=== PATIENT | female | born 1955 | race Caucasian/White ===

== ENCOUNTER → 2022-09-06 | Outpatient (CLI) | payer MEDICARE ==
--- NOTE | 2022-09-06 20:13 | US ---
EXAMINATION TYPE: US mass soft tissue chest/back DATE OF EXAM: 09/06/2022 COMPARISON: NONE CLINICAL INDICATION: Female, 66 years old with history of R22.2 LOCALIZED SWELLING, MASS AND LUMP, TR UNK; Lump mid upper epigastric area and lower back right side. TECHNIQUE: Targeted scanning along the patient's two palpable sites as detailed below. FINDINGS: (1) Isoechoic area seen right lower back area corresponding to the patient's palpable lump. This is o jose, circumscribed, and located within the subcutaneous adipose layer with echogenicity similar to th e subcutaneous fat. The lesion measures 5.9 x 2.7 x 5.0 cm. (2) The patient was brought back for additional scanning along the midline supraumbilical region at t he second site of lump. There is focal protuberance across a 1.3 cm wide defect in the abdominal wall musculature. This expands with Valsalva from 1.6 cm wide up to 2.3 cm wide. IMPRESSION: 1. Palpable area along the right lower back corresponds to a 5.9 cm subcutaneous lipoma. If symptomat ic or growth is noted, consider surgical excision. 2. Palpable area along the supraumbilical midline corresponds to a small fat-containing ventral abdom inal wall hernia. This protrudes across a 1.3 cm wide abdominal wall defect. The hernia expands from 1.6 cm wide up to 2.3 cm wide with Valsalva.
== END | disposition home or self-care (01) ==
LOC: RADUSWWP 12:03
PROVIDERS: ATTEND Family Medicine
DX: D17.1 Benign lipomatous neoplasm of skin and subcutaneous tissue of trunk (principal); K43.9 Ventral hernia without obstruction or gangrene

== ENCOUNTER → 2023-01-05 | Outpatient (CLI) | payer MEDICARE | END | disposition home or self-care (01) | LOC: LABWHC1 14:11 | PROVIDERS: ATTEND Surgery | DX: Z01.812 Encounter for preprocedural laboratory examination (principal); I51.7 Cardiomegaly | CPT/HCPCS: 93005 ==

== ENCOUNTER 2023-01-09 11:51 | Day surgery (SDC) | payer MEDICARE ==
[2023-01-06 11:27] VITALS: BMI 26.4
[~2023-01-09 11:51] MED LIST: ACETAMINOPHEN TAB 500 MG TAB PO PRN; DEXAMETHASONE SOD PHOSPHATE 4 MG/ML 1 ML VIAL IV ONE; HEPARIN SODIUM,PORCINE/PF 5,000 UNIT/0.5 ML SYRINGE SQ PRN; LIDOCAINE 1% (10MG/ML) FOR IV START INTRADERMA PRN; MIDAZOLAM 2 MG/2 ML VIAL IV PRN; ONDANSETRON 4 MG/2 ML VIAL IVP ONE
[2023-01-09] MEDS: LACTATED RINGERS 1,000 ML IV SCH ×2 (12:37→13:43)
[2023-01-09 12:53] LABS: Basophils % (A) 1 %; Eosinophils # (A) 0.2 k/uL (0-0.7); Eosinophils % (A) 3 %; HCT 40.1 % (34.0-46.0); HGB 13.7 gm/dL (11.4-16.0); Lymphocytes # (A) 1.4 k/uL (1.0-4.8); Lymphocytes % (A) 26 %; MCH 31.6 pg (25.0-35.0); MCHC 34.1 g/dL (31.0-37.0); MCV 92.7 fL (80.0-100.0); Mean Platelet Volume 7.3; Monocytes # (A) 0.2 k/uL (0-1.0); Monocytes % (A) 4 %; Neutrophils # (A) 3.5 k/uL (1.3-7.7); Neutrophils % (A) 65 %; Platelet Count 200 k/uL (150-450); RBC 4.32 m/uL (3.80-5.40); RDW 12.9 % (11.5-15.5); WBC 5.4 k/uL (3.8-10.6)
[2023-01-09] MEDS ORDERED: SCOPOLAMINE 1 MG/72 HR PATCH TRANSDERM ONE (12:53)
[2023-01-09 13:06] LABS: African American GFR (CKD) >90 (>60 ml/min/1.73 sqM); Anion Gap 10 mmol/L; Blood Urea Nitrogen 17 mg/dL (7-17); Calcium 9.5 mg/dL (8.4-10.2); Carbon Dioxide 22 mmol/L (22-30); Chloride 108 mmol/L (98-107); Glucose 104 mg/dL (74-99); Non-African American GFR(CKD) 86 (>60 ml/min/1.73 sqM); Sodium 140 mmol/L (137-145)
[2023-01-09 13:09] LABS: Potassium 4.4 mmol/L (3.5-5.1)
[2023-01-09] MEDS ORDERED: BUPIVACAINE (PF) 0.25% 30 ML VIAL SQ ONE ×3 (13:36)
[2023-01-09] MEDS ORDERED: GLYCOPYRROLATE 0.2 MG/ML 2 ML VIAL ONE (13:42)
[2023-01-09] MEDS ORDERED: NEOSTIGMINE 1 MG/ML 10 ML VIAL ONE (13:42)
[2023-01-09] MEDS ORDERED: ONDANSETRON 4 MG/2 ML VIAL ONE (13:42)
[2023-01-09] MEDS ORDERED: MIDAZOLAM 2 MG/2 ML VIAL ONE (13:42)
[2023-01-09] MEDS ORDERED: PROPOFOL 10 MG/ML 20 ML VIAL IV ONE (13:42)
[2023-01-09] MEDS ORDERED: fentaNYL (PF) 50 MCG/ML 2 ML AMP ONE (13:42)
[2023-01-09] MEDS ORDERED: ROCURONIUM 10 MG/ML (5 ML VIAL) IV ONE (13:42)
[2023-01-09] MEDS ORDERED: KETOROLAC 15 MG/ML 1 ML VIAL ONE (13:42)
[2023-01-09] MEDS ORDERED: LIDOCAINE 1% INJ 10MG/ML (20 ML MDV) ONE (13:42)
[2023-01-09] MEDS ORDERED: SUCCINYLCHOLINE CHLORIDE 200 MG/10 ML VIAL IV ONE (13:42)
[2023-01-09] MEDS ORDERED: LACTATED RINGERS 1,000 ML IV ONE (15:03)
--- NOTE | 2023-01-09 15:09 | P.OP ---
Date of Procedure: 01/09/23 Procedure(s) Performed: PREOPERATIVE DIAGNOSIS: Incarcerated ventral hernia, back lipoma POSTOPERATIVE DIAGNOSIS: Same PROCEDURE: Open repair incarcerated ventral hernia with mesh, excision back lipoma with intermediate closure SURGEON: Dr. Lynne ANESTHESIA: General OPERATIVE PROCEDURE DETAILS: Patient initially was placed in the left decubitus position. The back was prepped and draped sterilely. A horizontal incision was made overlying the palpable mass. A lipomatous mass was then easily excised using both cautery and blunt dissection. This measured 6 x 5 x 3 cm. Subcutaneous tissues then closed using interrupted 3-0 Vicryl sutures. Skin closed using running 4-0 Monocryl sutures. Length of intermediate closure 5 cm. Patient was then placed on the operating table in the supine position. Abdomen was prepped and draped in usual sterile fashion. A vertical incision was then made in the epigastrium. Dissection through the subcutaneous tissues took place using electrocautery. The patient had a single defect measuring 2.2 x 1.5 cm. The hernia sac and adjacent preperitoneal fat was ligated using 2 separate 0 Ethibond sutures in a stick tie fashion. The sac was first opened to confirm no bowel within the hernia sac. Preperitoneal space was then carefully dissected using both blunt dissection and cautery. We were able to avoid entrance into the peritoneal cavity. We had adequate space now for a sizable mesh. The 6.4 cm ventral ex mesh was placed in the preperitoneal space and sutured to the fascia using trans-fascial 0 Ethibond sutures. Following that the fascial defect was reapproximated using interrupted 0 Ethibond mattress sutures. The folding edge was sutured down using 0 Ethibond sutures as well. The subcutaneous tissues were closed using 20 and 3-0 Vicryl sutures. The skin was closed using a running 4-0 Monocryl suture. Skin glue and sterile dressings w ere applied. HERNIA CHARACTERISTICS: Length: 2.2 cm Width: 1.5 cm Type: Incarcerated ventral TYPE OF MESH USED: 6.4cm around ventral ex LOCATION OF MESH: Sub-lay FIXATION: 0 Ethibond PREOPERATIVE DISCUSSION ON SMOKING CESSASTION: Yes PREOPERATIVE DISCUSSION ON MORBID OBESITY: Yes PREOPERATIVE DISCUSSION ON APPROPRIATE USE OF NARCOTIC USE: Yes PREOPERATIVE EDUCATION: Multi Modal, Smoking Cessation and Weight Loss with BMI over 35. DISPOSITION: Stable to recovery room
[2023-01-09] MEDS: HYDROmorphone 0.5 MG/0.5 ML SYRINGE IVP PRN ×3 (15:15→15:39)
[2023-01-09 15:21] VITALS: TEMP 97.6
[2023-01-09 16:20] VITALS: RESP 14
[2023-01-09] MEDS ORDERED: ACETAMINOPHEN TAB 325 MG TAB PO SCH (18:00)
[2023-01-09 18:09] VITALS: BP 140/87; PULSE 80
[2023-01-09] MEDS ORDERED: IBUPROFEN 600 MG TAB PO SCH (19:00)
== END 2023-01-09 17:30 | disposition home or self-care (01) ==
LOC: OR 11:51
PROVIDERS: ATTEND Surgery
DX: K43.6 Other and unspecified ventral hernia with obstruction, without gangrene (principal); D17.1 Benign lipomatous neoplasm of skin and subcutaneous tissue of trunk; K21.9 Gastro-esophageal reflux disease without esophagitis; E55.9 Vitamin D deficiency, unspecified; E78.00 Pure hypercholesterolemia, unspecified; Z79.1 Long term (current) use of non-steroidal anti-inflammatories (NSAID); Z79.899 Other long term (current) drug therapy; Z90.49 Acquired absence of other specified parts of digestive tract; Z88.5 Allergy status to narcotic agent
CPT/HCPCS: 88304; 80048; 85025; 88302; 49592; 21931; C1781; J2250; J0330; J1100; J2710; J0690; J2405; J2001; J3010; J1885; J2704; J1170; J1644; J0665

== ENCOUNTER → 2023-10-18 | Outpatient (CLI) | payer MEDICARE ==
--- NOTE | 2023-10-19 09:05 | CT ---
EXAMINATION TYPE: CT right knee - PARVIN Protocol CT DLP: 855 mGycm, Automated exposure control for dose reduction was used. DATE OF EXAM: 10/18/2023 4:27 PM COMPARISON: None CLINICAL INDICATION:Female, 68 years old with history of M17.11 UNILATERAL PRIMARY OSTEOARTHRITIS, RI GHT KN; PHH, Pre-surgical for Rt knee replacement. TECHNIQUE: Axial images were obtained of the CT right knee - PARVIN Protocol, Additional coronal and sa gittal reformatted images and soft tissue and bone window were obtained for review. Contrast used: mL of , (None if empty) Oral contrast used: (None if empty) FINDINGS: The visualized portion of the hips demonstrate mild osteoarthrosis changes with osteophyte formation of the acetabulum. No acute intrapelvic process. The bony structures of the pelvis are inta ct. The visualized knees demonstrates osteophyte formation of the tibial plateau, the patella and femora l condyles. There is joint space narrowing and subchondral sclerosis. No evidence of fracture. Findin gs worse on the right laterally and on the left laterally. Visualized ankle demonstrates multifocal osteoarthrosis changes with osteophyte formation and mild nae int space narrowing. No evidence of fractures. The appendix is normal. Uterus is surgically absent. Bladder is nondistended. Matter minimal atherosc lerosis. Degeneration changes of the spine with disc space narrowing osteophytes and facet joint arth ropathy. IMPRESSION: Severe osteoarthrosis changes of the bilateral knees.
== END | disposition home or self-care (01) ==
LOC: RADCTMAIN 15:44
PROVIDERS: ATTEND Orthopaedic Surgery
DX: M17.0 Bilateral primary osteoarthritis of knee (principal); M21.061 Valgus deformity, not elsewhere classified, right knee; Z96.651 Presence of right artificial knee joint